=== PATIENT | male | born 1960 | race Caucasian/White ===

== ENCOUNTER 2017-01-30 20:41 | Emergency (ER) | payer SELFPAY ==
[~2017-01-30] VITALS: Ht 190.5 cm; Wt 78.9 kg
[~2017-01-30 20:41] MED LIST: IBUP-103 PO; vit B PO
[2017-01-30 20:55] VITALS: TEMP 36.5; O2SAT 97; Ht 190.5 cm; Wt 78.9 kg
--- NOTE | 2017-01-30 22:32 | DIAGNOSTIC IMAGING REPORT ---
HEAD CT NONCONTRAST CT DOSE: 614.27 mGy.cm HISTORY: Mental status change headache TECHNIQUE: Multiaxial CT images of the head were performed without the use of intravenous contrast. Comparison: None. Findings: The paranasal sinuses and mastoid air cells are clear. The calvarium and skull base are intact. The ventricles and sulci are within normal limits. There is no mass, hematoma, midline shift, or acute infarct. Impression: No acute intracranial abnormality. Electronically signed by: Max Banks M.D. 01/30/2017 10:30 PM Dictated Date/Time: 01/30/2017 10:29 PM
[2017-01-30 22:45] VITALS: BP 135/77; PULSE 86
--- NOTE | 2017-01-30 22:51 | EMERGENCY ROOM VISIT NOTE ---
History Report prepared by Oscaribkayli: Richy Wang Under the Supervision of: Dr. Chi Christensen D.O. First contact with patient: 21:31 Chief Complaint: HEAD INJURY (MINOR) Stated Complaint: FALL, HEADACHE History of Present Illness The patient is a 56 year old male who presents to the Emergency Room with complaints of constant head pain s/p fall occurring 4 days ago. He states that he fell and hit the back of his head. He denies any vomiting, or confusion. The patient states that he presented to the ED today because his friends convinced him. He notes that he felt really "shaky" the past several days until today. Source of History: patient Onset: 4 days ago Position: head (back of head) Timing: constant Associated Symptoms: No vomiting Note: he patient also complains of "shakiness" that resolved today. He denies any confusion Review of Systems See HPI for pertinent positives and negatives. A total of ten systems were reviewed and were otherwise negative. Past Medical & Surgical Medical Problems: (1) ALCOH DEP NEC/NOS-CONTIN (2) ALCOHOL WITHDRAWAL (3) BENIGN HYPERTENSION (4) epiglotitis (5) MIXED HYPERLIPIDEMIA (6) PURE HYPERGLYCERIDEMIA Family History No pertinent family history stated. Social History Smoking Status: Current Every Day Smoker Alcohol Use: heavy Drug Use: none Marital Status: single Housing Status: lives alone Occupation Status: employed Current/Historical Medications No Active Prescriptions or Reported Meds Allergies Coded Allergies: BEE STING (Verified Allergy, Unknown, swelling, 01/30/17) Physical Exam Vital Signs Date Time Temp Pulse Resp B/P (MAP) Pulse Ox O2 Delivery O2 Flow Rate FiO2 01/30/17 22:45 86 20 135/77 01/30/17 21:05 106 01/30/17 20:55 36.5 108 20 140/84 97 Room Air 01/30/17 20:52 20 Physical Exam GENERAL: Intoxicated, alcohol on breath, well appearing, no distress HENT: Normocephalic. Oropharynx unremarkable. Small hematoma to the posterior head. EYES: PERRL. Erythematous conjunctiva. Sclera non-icteric. NECK: Supple. No nuchal rigidity. FROM. RESPIRATORY: CTA CARDIAC: RRR GI/ABDOMEN: Soft, non distended. No tenderness to palpation. No rebound or guarding. No masses. RECTAL: Deferred. MUSCULOSKELETAL: No edema. No discoloration. Gross motor strength 5/5 bilaterally. NEURO: Altered sensorium. No sensory or motor deficits noted. Speech slurred. SKIN: No rash or jaundice noted. LYMPH: No adenopathy. Medical Decision & Procedures ER Provider Diagnostic Interpretation: CT: Radiology results as stated below per my review and radiologist interpretation HEAD CT NONCONTRAST Findings: The paranasal sinuses and mastoid air cells are clear. The calvarium and skull base are intact. The ventricles and sulci are within normal limits. There is no mass, hematoma, midline shift, or acute infarct. Impression: No acute intracranial abnormality. Electronically signed by: Max Banks M.D. ED Course 2132: The patient was evaluated in room B12B. A complete history and physical exam was performed. 2249: I reevaluated the patient. Discussed results and discharge instructions: he verbalized understanding and agreement. The patient is ready for discharge. Medical Decision Differential diagnoses include but are not limited to; subdural hemorrhage, ICH , hematoma, and alcohol abuse. Patient resting in no distress on repeat examination at 2300. Patient has a GCS of 15 is nonfocal neurologically. I discussed the evaluation with the patient at bedside. Patient's CAT scan was negative for intracranial hemorrhage. Impression Primary Impression: Closed head injury Scribe Attestation The scribe's documentation has been prepared under my direction and personally reviewed by me in its entirety. I confirm that the note above accurately reflects all work, treatment, procedures, and medical decision making performed by me. Departure Information Dispostion Home / Self-Care Prescriptions No Active Prescriptions or Reported Meds Referrals No Doctor, Assigned (PCP) Patient Instructions ED Head Injury Closed, My [facility]
== END 2017-01-30 23:09 | disposition home or self-care (01) ==
LOC: EDBD 20:41 → C.EDB 20:42
DX: S09.90XA Unspecified injury of head, initial encounter (principal); I10 Essential (primary) hypertension; E78.2 Mixed hyperlipidemia; F17.200 Nicotine dependence, unspecified, uncomplicated; W19.XXXA Unspecified fall, initial encounter

== ENCOUNTER 2019-08-27 13:10 | Inpatient (IN) ==
[2019-08-27 14:41] LABS: Basophils # (auto) 0.02 K/uL (0-0.2); Basophils % (auto) 0.1 %; Eosinophils # (auto) 0.02 K/uL (0-0.5); Eosinophils % (auto) 0.1 %; Hematocrit (blood only) 35.9 % (42-52); Hemoglobin 12.4 g/dL (14.0-18.0); Immature Granulocytes # (auto) 0.05 K/uL (0.00-0.02); Immature Granulocytes % (auto) 0.4 %; Lymphocytes # (auto) 1.73 K/uL (1.2-3.4); Lymphocytes % (auto) 12.9 %; Mean Corpuscular Hemoglobin 31.8 pg (25-34); Mean Corpuscular Hgb Conc 34.5 g/dL (32-36); Mean Corpuscular Volume 92.1 fL (80-100); Mean Platelet Volume 9.1 fL (7.4-10.4); Monocytes # (auto) 1.26 K/uL (0.11-0.59); Monocytes % (auto) 9.4 %; Neutrophils # (auto) 10.32 K/uL (1.4-6.5); Neutrophils % (auto) 77.1 %; Platelet Count 339 K/uL (130-400); RDW Coefficient of Variation 11.9 % (11.5-14.5); RDW Standard Deviation 40.2 fL (36.4-46.3)
--- NOTE | 2019-08-27 14:44 | XRay Report ---
XR chest 1V portable HISTORY: 59 years-old Male weakness acute weakness with confusion COMPARISON: Chest radiograph 09/29/2018 TECHNIQUE: Portable AP view of the chest FINDINGS: Cardiac silhouette is upper limits of normal in size. No overt pulmonary edema. Minimal right basilar densities suggest atelectasis. Airspace opacities of the left lung base. No pneumothorax or large pl eural effusion. Degenerative changes of the shoulders and spine. Healed remote bilateral rib fracture s. IMPRESSION: 1. Airspace opacities of the left lung base are suspicious for pneumonia. Follow-up imaging to docume nt resolution recommended. 2. Mild cardiomegaly. ACT 112: Negative or not required by law. The above report was generated using voice recognition software. It may contain grammatical, syntax o r spelling errors. Electronically signed by: Ortiz Duvall M.D. 08/27/2019 2:42 PM
[2019-08-27 15:01] LABS: Albumin Level 3.6 gm/dl (3.4-5.0); BUN Creatinine Ratio 9.2 (10-20); Blood Urea Nitrogen 7 mg/dl (7-18); Calcium 8.9 mg/dl (8.5-10.1); Carbon Dioxide 26 mmol/L (21-32); Chloride 100 mmol/L (98-107); Est GFR (African American) 112.9; Est GFR (Non-African American) 97.4; Glucose 106 mg/dl (70-99); Magnesium 2.2 mg/dl (1.8-2.4); Potassium 3.6 mmol/L (3.5-5.1); Sodium 131 mmol/L (136-145)
[2019-08-27 15:13] LABS: Alanine Aminotransferase 16 U/L (12-78); Alkaline Phosphatase 64 U/L (45-117); Aspartate Aminotransferase 12 U/L (15-37); Globulin 3.7 gm/dl (2.5-4.0); Thyroid Stimulating Hormone 0.631 uIu/ml (0.300-4.500); Total Protein 7.3 gm/dl (6.4-8.2)
--- NOTE | 2019-08-27 15:16 | CT Scan Report ---
CT head/brain wo con CLINICAL HISTORY: 59 years-old Male with AMS. Acutely altered mental status TECHNIQUE: Multiple axial CT images of the head were obtained without contrast. A dose lowering tech nique was utilized adhering to the principles of ALARA. CT DOSE: 1646.23 mGy.cm COMPARISON: Head CT 09/29/2018. FINDINGS: There is a hyperdense ring shaped ovoid mass within the left parietal lobe, 3.6 x 2.1 cm with central low attenuation suggestive of central necrosis. Large amount of surrounding vasogenic edema is noted resulting in partial effacement of the atria and posterior horn left lateral ventricle. This results in gyral expansion with mild sulcal effacement which involves the adjacent frontal, parietal, tempor al and occipital lobes. 3 mm rightward midline shift. No acute intracranial hemorrhage or acute judson torial ischemia. Age-related involutional changes with patchy white matter hypodensities suggestive o f chronic microvascular ischemic disease. Mild encephalomalacia of the inferior left frontal lobe red emonstrated. No hydrocephalus or herniation. No acute calvarial fracture. Mastoid air cells and middle ear cavities are clear. Soft tissues and or bits are within normal limits. Metallic density 3 mm focus involves the anterior frontal scalp, uncha nged compatible with foreign body. IMPRESSION: 1. 3.6 x 2.1 cm intra-axial mass of the left parietal lobe with probable central cavitation is noted with a large amount of surrounding vasogenic edema resulting in partial effacement of the atria and p osterior horn left lateral ventricle resulting in adjacent sulcal effacement with gyral expansion and 3 mm rightward midline shift. Primary glial neoplasm is the diagnosis of exclusion. Neurosurgical an d oncologic consultation is needed. 2. No acute intracranial hemorrhage, herniation or hydrocephalus. ACT 112: Negative or not required by law. The above report was generated using voice recognition software. It may contain grammatical, syntax o r spelling errors. Electronically signed by: Ortiz Duvall M.D. 08/27/2019 3:15 PM
[2019-08-27] MEDS ORDERED: DEXAMETHASONE **PF** INJ 10 MG/ML VIAL IV ONE (15:39)
[2019-08-27 16:16] LABS: Appearance Urine Clear (Clear); Bilirubin Urine Negative (Negative); Blood Urine Negative (Negative); Color Urine Yellow; Glucose Urine UA Negative (Negative); Ketones Urine Negative (Negative); Leukocyte Esterase Urine Negative (Negative); Nitrite Urine Negative (Negative); Protein Urine Negative (Negative); Specific Gravity Urine 1.006 (1.000-1.030); Urobilinogen Urine Negative (Negative)
[2019-08-27] MEDS ORDERED: cefTRIAXone SODIUM 1,000 MG/50 ML BAG IV STA (16:20)
[2019-08-27 18:55] LABS: Amphetamines+Metham, Urine Neg (Neg); Barbiturates, Urine Neg (Neg); Benzodiazepine, Urine Neg (Neg); Cocaine, Urine Neg (Neg); MDMA (Ecstacy), Urine Neg (Neg); Methadone, Urine Neg (Neg); Opiate, Urine Neg (Neg); Phencyclidine, Urine Neg (Neg)
[2019-08-27] MEDS ORDERED: IOVERSOL 100ml IV PRN (19:02)
--- NOTE | 2019-08-27 19:07 | History & Physical Report ---
Date of Service August 27, 2019 Assessment & Plan (1) Lung mass: 59y/o M presented to the emergency room with increased confusion and combativeness over the last several months Lung mass: - CT chest/abd/pelvis: demonstrated 3.6x3.0 cm spiculated mass in the lingula, with sub-centimeter nodules in LLL, 3mm lytic lesion of L 9th rib, 1.8cm lesion of R hepatic lobe - likely representing a primary lung malignancy with metastatic spread - attempted to reach Sister to update new findings of imaging studies (Alyssa Marsh [phone] or [phone]) Brain mass: - likely 2/2 metastatic lung cancer demonstrated on CT Chest - CT head: demonstrated 3.6 x 2..1 cm intra-axial lobe of the left parietal lobe with central cavitation Altered mental status: - ? if 2/2 lesion in left parietal lobe or due to metabolic cause - NA 131 on admission; UDS negative; alcohol level negative - started fluid restriction <1200mL Q24h - urine osmols pending, serum osmols pending - patient received Dexamethasone 10mg in ED; will continue with 4mg Q12h - Sodium chloride 1gm TID for replacement - BMPs Q8h - Neuro checks Q4h - ordered one-to-one sitter Diet: regular diet with fluid restriction to 1200mL daily Code: Full DVT ppx: Lovenox (2) Brain mass: (3) Altered mental status: History of Present Illness Chief Complaint: confusion and combativeness Primary Care Provider: NO PCP Supa Pate is a 59 y/o M with PMH of hypertension, alcoholism, uncertain d rug use, and uncertain extent of head trauma; presented to the emergency room following being increasingly confused and agitated with family this morning, family notes that when they arrived this morning he had defecated on the floor; per sister this has been progressing over the last year since he re-entered her families life. Had previously been living in a homeless fpc, or living on the streets for the better part of the last decade; when he was not living on the streets, per family, he had been living with his brother and likely using recreational drugs at that time, as his brother was known to family to "be mixed up in that stuff" and patient had to be checked into a detox facility shortly thereafter. They are also aware that he previously had a significant fall and was sent to [facility] (around 1999) for some brain bleed as a result of this trauma; he has had numerous falls since then but nothing that additionally required treatment Since March family has progressively noticed a decline in the function of the patient and this has continued to exponentially worsen over the last month with the patient becoming more increasingly confused, erratic (has been increasing his wandering around the community and has been found by family away from home), and they have noticed that he has been unable to sign his name. Family also noted that he has previously complained to them that his vision was worsening; patient is wearing glasses at this time, but they are unsure where he got them from or if they are prescription strength because they did not take him to get them. Allergies Allergy/AdvReac Type Severity Reaction Status Date / Time bee venom protein (honey bee) Allergy Unknown swelling Verified 08/27/19 14:17 Home Medications Home Medications Medication Instructions Recorded Confirmed Type No Known Home Medications 09/29/18 08/27/19 History Past Med/Surg History Medical History Distal radius fracture, left (Acute) Hypertension (Chronic) Family History Other Family history non-contributory Social History Feels Safe at Home: No Smoking Status: Current every day smoker Review of Systems Review of Systems: Unobtainable due to cognitive status Physical Exam Constitutional: well developed, well nourished and + behavioral limitations; no acute distress Eyes: PERRL, conjunctivae normal, anicteric sclerae ENMT: external ear and nose normal, oropharynx normal Respiratory: normal respiratory effort, lungs clear to auscultation Cardiovascular: Rate/Rhythm: regular rate and regular rhythm Heart Sounds: no gallop, no murmur and no cardiac rub Vessels: no JVD Gastrointestinal (Abdomen): normal bowel sounds, soft, nontender, no hepatosplenomegaly Neurologic: PERRL, EOMI, accommodation nl, no face palsy, no dysarthria Gait: + staggering gait testing limited based off patient's inability to follow commands Psychiatric: Orientation: alert, oriented to person, oriented to place and cooperative; + not oriented to time Apperance: + disheveled Eye Contact: + fair eye contact Motor Behavior: + abnormal motor movements and no psychomotor agitation Affect: + constricted affect Mood: + irritable mood Insight: not limited insight Judgement: not limited judgement patient frequently shifting in bed; moving blankets from side to side on bed and then on to floor followed by picking up from floor; frequently asking to sit down, even when he is already seated Results & Data Vital Signs (Past 12 Hours) Vital Signs Temp Pulse Pulse Resp BP Pulse Ox 08/27/19 18:00 76 20 165/88 H 08/27/19 14:42 37 C 08/27/19 14:36 97 08/27/19 14:34 69 18 149/78 H 08/27/19 14:33 97 08/27/19 13:14 103 H 18 94 Laboratory Results 08/27/19 08/27/19 08/27/19 Range/Units 17:34 15:55 15:55 WBC (4.8-10.8) K/uL RBC (4.7-6.1) M/uL Hgb (14.0-18.0) g/dL Hct (42-52) % MCV (80-100) fL MCH (25-34) pg MCHC (32-36) g/dL RDW Std Deviation (36.4-46.3) fL RDW Coeff of Skylar (11.5-14.5) % Plt Count (130-400) K/uL MPV (7.4-10.4) fL Immature Gran % (Auto) % Neut % (Auto) % Lymph % (Auto) % [place] % (Auto) % Eos % (Auto) % Baso % (Auto) % Immature Gran # (Auto) (0.00-0.02) K/uL Neut # (Auto) (1.4-6.5) K/uL Lymph # (Auto) (1.2-3.4) K/uL [place] # (Auto) (0.11-0.59) K/uL Eos # (Auto) (0-0.5) K/uL Baso # (Auto) (0-0.2) K/uL Sodium (136-145) mmol/L Potassium (3.5-5.1) mmol/L Chloride (98-107) mmol/L Carbon Dioxide (21-32) mmol/L Anion Gap (3-11) BUN (7-18) mg/dl Creatinine (0.6-1.4) mg/dl Est Cr Clr Drug Dosing Est GFR ( Amer) Est GFR (Non-Af Amer) BUN/Creatinine Ratio (10-20) Glucose (70-99) mg/dl Calcium (8.5-10.1) mg/dl Magnesium (1.8-2.4) mg/dl Total Bilirubin (0.2-1) mg/dl AST (15-37) U/L ALT (12-78) U/L Alkaline Phosphatase (45-117) U/L Total Protein (6.4-8.2) gm/dl Albumin (3.4-5.0) gm/dl Globulin (2.5-4.0) gm/dl Albumin/Globulin Ratio (0.9-2) TSH (0.300-4.500) uIu/ml Urine Color Yellow Urine Appearance Clear (Clear) Urine pH 6.0 (4.5-7.5) Ur Specific [place] 1.006 (1.000-1.030) Urine Protein Negative (Negative) Urine Glucose (UA) Negative (Negative) Urine Ketones Negative (Negative) Urine Blood Negative (Negative) Urine Nitrite Negative (Negative) Urine Bilirubin Negative (Negative) Urine Urobilinogen Negative (Negative) Ur Leukocyte Esterase Negative (Negative) Urine Opiates Screen Neg (Neg) Ur Methadone, Qual Neg (Neg) Urine Barbiturates Neg (Neg) Ur Phencyclidine (PCP) Neg (Neg) U Amphetamin/Meth Scrn Neg (Neg) MDMA (Ecstasy) Screen Neg (Neg) U Benzodiazepines Scrn Neg (Neg) Ur Cocaine Metabolite Neg (Neg) U Marijuana (THC) Screen Neg (Neg) Ethyl Alcohol mg/dL < 3.0 (0-3) mg/dl 08/27/19 08/27/19 Range/Units 14:30 14:30 WBC 13.40 H (4.8-10.8) K/uL RBC 3.90 L (4.7-6.1) M/uL Hgb 12.4 L (14.0-18.0) g/dL Hct 35.9 L (42-52) % MCV 92.1 (80-100) fL MCH 31.8 (25-34) pg MCHC 34.5 (32-36) g/dL RDW Std Deviation 40.2 (36.4-46.3) fL RDW Coeff of Skylar 11.9 (11.5-14.5) % Plt Count 339 (130-400) K/uL MPV 9.1 (7.4-10.4) fL Immature Gran % (Auto) 0.4 % Neut % (Auto) 77.1 % Lymph % (Auto) 12.9 % [place] % (Auto) 9.4 % Eos % (Auto) 0.1 % Baso % (Auto) 0.1 % Immature Gran # (Auto) 0.05 H (0.00-0.02) K/uL Neut # (Auto) 10.32 H (1.4-6.5) K/uL Lymph # (Auto) 1.73 (1.2-3.4) K/uL [place] # (Auto) 1.26 H (0.11-0.59) K/uL Eos # (Auto) 0.02 (0-0.5) K/uL Baso # (Auto) 0.02 (0-0.2) K/uL Sodium 131 L (136-145) mmol/L Potassium 3.6 (3.5-5.1) mmol/L Chloride 100 (98-107) mmol/L Carbon Dioxide 26 (21-32) mmol/L Anion Gap 5.0 (3-11) BUN 7 (7-18) mg/dl Creatinine 0.78 (0.6-1.4) mg/dl Est Cr Clr Drug Dosing Not Reportable Est GFR ( Amer) 112.9 Est GFR (Non-Af Amer) 97.4 BUN/Creatinine Ratio 9.2 L (10-20) Glucose 106 H (70-99) mg/dl Calcium 8.9 (8.5-10.1) mg/dl Magnesium 2.2 (1.8-2.4) mg/dl Total Bilirubin 1.0 (0.2-1) mg/dl AST 12 L (15-37) U/L ALT 16 (12-78) U/L Alkaline Phosphatase 64 (45-117) U/L Total Protein 7.3 (6.4-8.2) gm/dl Albumin 3.6 (3.4-5.0) gm/dl Globulin 3.7 (2.5-4.0) gm/dl Albumin/Globulin Ratio 1.0 (0.9-2) TSH 0.631 (0.300-4.500) uIu/ml Urine Color Urine Appearance (Clear) Urine pH (4.5-7.5) Ur Specific [place] (1.000-1.030) Urine Protein (Negative) Urine Glucose (UA) (Negative) Urine Ketones (Negative) Urine Blood (Negative) Urine Nitrite (Negative) Urine Bilirubin (Negative) Urine Urobilinogen (Negative) Ur Leukocyte Esterase (Negative) Urine Opiates Screen (Neg) Ur Methadone, Qual (Neg) Urine Barbiturates (Neg) Ur Phencyclidine (PCP) (Neg) U Amphetamin/Meth Scrn (Neg) MDMA (Ecstasy) Screen (Neg) U Benzodiazepines Scrn (Neg) Ur Cocaine Metabolite (Neg) U Marijuana (THC) Screen (Neg) Ethyl Alcohol mg/dL (0-3) mg/dl Medications Administered Current Inpatient Medications Acetaminophen (Tylenol) 650 mg PO Q4H PRN PRN Reason: pain/fever Stop: 09/26/19 20:25 Al Hydrox/Mg Hydrox/Simethicone (Maalox) 30 ml PO Q6H PRN PRN Reason: Dyspepsia Stop: 09/26/19 20:25 Enoxaparin Sodium (Lovenox) 40 mg SQ Q24H RAHUL Stop: 09/26/19 20:59 Haloperidol Lactate (Haldol) 2 mg IV UD PRN PRN Reason: Agitation Stop: 09/26/19 20:49 Dexamethasone Sodium Phosphate (4 mg/ Syringe) 1 mls @ 1 mls/min IV Q12H RAHUL Stop: 09/27/19 08:59 Ioversol (Optiray 320 100ml) 93 ml IV ONCE PRN PRN Reason: Interaction Checking Stop: 08/31/19 19:01 Last Admin: 08/27/19 19:03 Dose: 93 ml Documented by: Magnesium Hydroxide (Milk Of Magnesia) 30 ml PO Q6H PRN PRN Reason: Constipation Stop: 09/26/19 20:25 Ondansetron HCl (Zofran) 4 mg IV Q6H PRN PRN Reason: Nausea Stop: 09/26/19 20:25 Polyethylene Glycol (Miralax Powder Packet) 17 gm PO DAILY PRN PRN Reason: Constipation Stop: 09/26/19 20:25 Supervising Physician Co-Signing Physician Notes Patient seen and examined, chart reviewed, case discussed with Dr. David and agree with assessment and plan as documented above. Briefly, patient is a 59-year-old male with history of hypertension, alcoholism, remote history of IV drug use and homelessness presenting with his sister and [id number] after behavioral changes noted. ER work-up revealed a large left parietal mass concerning for metastatic disease versus primary malignancy. On postop exam he is afebrile, hemodynamically stable, able to answer questions and follow commands however he is inattentive, trying to walk out of the room and acting bizarrely at times. HEENTnormocephalic/atraumatic, pupils equal round and reactive to light, extraocular muscles intact, moist mucous membranes, neck supple Heart+ S1, S2, regular, no murmur/rub/gallops Lungsequal air entry bilaterally, no rales/rhonchi/wheezes, poor effort Abdomen+ bowel sounds, soft, nontender/nondistended Extremitieswarm, well-perfused Neuropatient awake alert and oriented x3, inattentive Labs and images reviewed. On CT chest a 3.6 x 3 cm spiculated mass discovered in the lingula 6 highly suspicious for primary bronchogenic malignancy. Also noted to have nodules in the left lower lobe concerning for metastatic disease, a 3 mm lytic lesion in the left lateral ninth rib as well as a 1.8 cm hypodense lesion in the right hepatic lobe. Assessment/[id number] male presenting with diffusely metastatic disease, most likely lung primary. 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 Admit to medical floor Fluid restriction and salt tablets 1 g p.o. 3 times daily for sodium -Continue Dexamethasone for vasogenic edema -Neuro checks Check urine and serum osmolality. -Patient has been referred to [facility] and is to transfer tomorrow Remainder of plan as above Resident Activity Tracking Resident Involvement: Resident Care Provided Care Provided: Adult [facility] (1) Altered mental status Altered mental status type: delirium Qualified Code(s): R41.0 - Di sorientation, unspecified
--- NOTE | 2019-08-27 19:27 | CT Scan Report ---
CHEST CT WITH CONTRAST, ABDOMEN AND PELVIS CT WITH CONTRAST CT DOSE: 720.43 mGy.cm HISTORY: brain mass, mets TECHNIQUE: Multiaxial CT images of the chest, abdomen, pelvis were performed following the intravenou s administration of contrast. A dose lowering technique was utilized adhering to the principles of A JACKELYN. COMPARISON: None. FINDINGS: Chest CT: A 3 mm nodule within the superior segment of the left lower lobe on image 68. Mild emphysem a. Tiny nodular densities along the left major fissure. A 5 mm nodule within the left lower lobe on i mage 267. There are 2 additional nodules within the basal left lower lobe on image 278 measuring 5 an d 7 mm. Punctate calcified granuloma within the right middle lobe. There is a spiculated mass within the lingula with distal consolidation suggestive of postobstructive pneumonitis. The spiculated mass measures 3.6 x 3.0 cm. Old, healed bilateral rib fractures. No suspicious lytic are blastic osseous l esions. The heart is normal in size. Normal caliber thoracic aorta with no evidence for dissection. T he main pulmonary arteries are patent. Calcified right paratracheal lymph node. Subcentimeter mediast inal hilar lymph nodes do not meet CT criteria for pathologic involvement. Dominant distal right para esophageal lymph node measures 8 mm. Abdomen/pelvis CT: No pneumoperitoneum. No pneumatosis. Possible 3 mm lytic lesion within the left la teral ninth rib. This is best seen on image 132. An indeterminate 1.8 cm hypodense lesion within the right hepatic lobe. This does not appear to represent a cyst. The spleen and left adrenal gland are u nremarkable. A 1.3 cm right adrenal gland nodule measures less than 10 Hounsfield units and therefore favors a benign adenoma. The kidneys, gallbladder, and pancreas are unremarkable. The bladder is dec ompressed and not well evaluated. Trace pelvic free fluid. Colonic diverticulosis. No evidence for di verticulitis. Normal appendix. No retroperitoneal lymphadenopathy. Calcified plaque within the normal caliber abdominal aorta. No bowel wall thickening or obstruction. IMPRESSION: 1. A 3.6 x 3.0 cm spiculated mass within the lingula. This is highly suspicious for a primary broncho genic malignancy. 2. A few subcentimeter nodules within the left lower lobe as described above which are concerning for metastatic disease. 3. Possible 3 mm lytic lesion within the left lateral ninth rib. This will be better assessed on foll ow-up PET/CT. 4. An indeterminate 1.8 cm hypodense lesion within the right right hepatic lobe. This could represent a metastatic focus. 5. Additional findings as described above. ACT 112: Negative or not required by law. Electronically signed by: Haseeb Flowers M.D. 08/27/2019 7:25 PM
--- NOTE | 2019-08-27 19:57 | Emergency Department Note ---
Entered by Yen Clancy acting as a scribe for History of Present Illness General Chief complaint: Confusion Stated complaint: CONFUSION Source: family (sister) History of Present Illness Provider complaint: confusion Onset (ago): day(s) 3 Location: head Severity: similar to prior episodes Quality: + other (confusion) Associated symptoms: + denies other symptoms The patient, who is a 59 year old male with a medical history of hypertension and left distal radius fracture, presents to the Emergency Room with complaints of an episode of confusion that started this morning. The patient's sister states that this patient has a history of confusion. The patient's sister reports that today the patient went to the bathroom on the floor and was unable to dress himself for his appointment today. The patient's daughter recalls that on four days ago the patient thought his appointment was on that day and prepared himself for that appointment. 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 The patient's sister reports that the patient has a history of head injury but is unsure of the significance. The patient's sister relays that the patient was homeless for one year but has recently settled into an apartment. The patient's sister denies a history of mental issues. The patient's sister states that the patient has been sober for months. The patient denies any pain and is unsure why he is in the hospital. Home Medications Home Medications Medication Instructions Recorded Confirmed Type No Known Home Medications 09/29/18 08/27/19 History dexamethasone sodium phosphate 4 mg IV Q12H #30 ml 08/28/19 Rx folic acid 1 mg PO DAILY #30 tab 08/28/19 Rx levetiracetam [Keppra] 500 mg PO BID #60 tab 08/28/19 Rx multivitamin 1 cap PO DAILY #30 cap 08/28/19 Rx potassium chloride [Klor-Con M20] 20 meq PO TID #6 tab 08/28/19 Rx sodium chloride 1 g PO TID #6 tab 08/28/19 Rx thiamine HCl (vitamin B1) 200 mg PO BID #120 tab 08/28/19 Rx Allergies Allergy/AdvReac Type Severity Reaction Status Date / Time bee venom protein (honey bee) Allergy Unknown swelling Verified 08/27/19 14:17 Past Med/Surg History Medical History Distal radius fracture, left (Acute) Hypertension (Chronic) Family History Other Family history non-contributory Social History (Updated 08/28/19 @ 08:51 by Jose L Farley III, MD) Preferred Language: Faroese Communication Ability: Effective Internal Control Analyst Required: No Beliefs That Will Affect Care: None Current Living Situation: Alone current occupational status: unemployed other: Former construction carpenters helper Feels Safe at Home: Declines to Answer Smoking Status: Current every day smoker packs per day: 0.5 ; Hx Alcohol Use: Yes Alcohol type: beer and hard liquor Alcohol Intake Frequency Comment: Was a heavy drinker in the past. Not drinking much currently. Hx Substance Use: No Review of Systems See HPI for pertinent positives & negatives. and A total of 10 systems reviewed and were otherwise negative Physical Exam Vital Signs Vital Signs - 24 hr 08/27/19 13:14 08/27/19 14:33 08/27/19 14:34 Temperature Temperature Source Pulse Rate 103 H Pulse Rate [Apical] 69 Pulse Rhythm [Apical] Regular Pulse Strength [Apical] Normal Respiratory Rate 18 18 Respiratory Effort / Characteristics Non-Labored Non-Labored Spontaneous Respiratory Depth Normal Normal Blood Pressure [Left Arm] 149/78 H Blood Pressure Mean [Left Arm] 101 Blood Pressure Position [Left Arm] Lying Pulse Oximetry 94 97 Oxygen Delivery Method Room Air Room Air Room Air Sepsis Recent Fever Within 48 Hours No Sepsis Action Taken by Nursing No Action Required 08/27/19 14:36 08/27/19 14:42 08/27/19 18:00 Temperature 37 C Temperature Source Oral Pulse Rate Pulse Rate [Apical] 76 Pulse Rhythm [Apical] Regular Pulse Strength [Apical] Normal Respiratory Rate 20 Respiratory Effort / Characteristics Non-Labored Spontaneous Respiratory Depth Normal Blood Pressure [Left Arm] 165/88 H Blood Pressure Mean [Left Arm] 113 Blood Pressure Position [Left Arm] Sitting Pulse Oximetry 97 Oxygen Delivery Method Room Air Sepsis Recent Fever Within 48 Hours Sepsis Action Taken by Nursing 08/27/19 19:12 Temperature Temperature Source Pulse Rate Pulse Rate [Apical] 77 Pulse Rhythm [Apical] Pulse Strength [Apical] Respiratory Rate 20 Respiratory Effort / Characteristics Respiratory Depth Blood Pressure [Left Arm] 136/72 Blood Pressure Mean [Left Arm] 93 Blood Pressure Position [Left Arm] Pulse Oximetry 100 Oxygen Delivery Method Room Air Sepsis Recent Fever Within 48 Hours Sepsis Action Taken by Nursing Vital signs reviewed. General: Well-appearing, despondent, male, in no significant distress. HEENT: No scleral icterus, PERRLA, neck supple. Atraumatic. Cardiovascular: Regular rate and rhythm, no extra sounds. Pulmonary: Clear to auscultation bilaterally, normal work of breathing. Abdomen: Soft, nontender, nondistended, positive bowel sounds. Musculoskeletal: Atraumatic, no peripheral edema. Neurologic: Patient awake alert and unaware of year, aware of location, full strength in all 4 extremities. Cranial nerves 2 through 12 grossly intact. Seems to have a delay in response. Speech is clear. Ambulates without difficulty. Skin: Warm, dry, no rash Course Course 1405: Past medical records reviewed. The patient was evaluated in room C3. A complete history and physical exam was performed. 1643: I reassessed the patient and discussed his results. I talked in length with the patient and his sister about the details of his transfer. 1651: I reviewed the patient's case with Dr. Echeverria, Neurosurgeon, [facility]. He was informed on the patient's condition and is willing to accept the patient for transfer. 1655: I reviewed the [facility] He informed me that there was no availability in their facility and suggests further evaluation from our hospitalist. 1708: I reviewed the patient's case with Dr. Annamarie Rowell, [facility] Hospitalist. She will evaluate the patient for further management. Consultations Consultation #1: I reviewed the patient's case with Dr. Echeverria, Janeen, [facility]. He was informed on the patient's condition and is willing to accept the patient for transfer Time: 16:51 Consultation #2: I reviewed the patient's [facility] He informed me that there was no availability in their facility and suggests further evaluation from our hospitalist. Time: 16:55 Consultation #3: I reviewed the patient's case with Dr. Annamarie Rowell, [facility] Hospitalist. She will evaluate the patient for further management. Time: 17:08 Administered Medications Discontinued Medications Dexamethasone Sodium Phosphate (Decadron Pf) 10 mg IV NOW ONE Stop: 08/27/19 15:40 Last Admin: 08/27/19 16:05 Dose: 10 mg Documented by: [id number] Enoxaparin Sodium (Lovenox) 40 mg SQ Q24H RAHUL Stop: 09/26/19 20:59 Last Admin: 08/27/19 22:03 Dose: Not Given Documented by: [id number] Folic Acid (Folvite) 1 mg PO QAM RAHUL Stop: 09/27/19 10:29 Last Admin: 08/28/19 12:29 Dose: 1 mg Documented by: [id number] Ceftriaxone Sodium (Rocephin) 1,000 mg in 50 mls @ 100 mls/hr IV NOW STA Stop: 08/27/19 16:49 Last Infusion: 08/27/19 18:16 Dose: 0 mls/hr Documented by: [id number] Admin: 08/27/19 17:45 Dose: 100 mls/hr Documented by: [id number] Dexamethasone Sodium Phosphate (4 mg/ Syringe) 1 mls @ 1 mls/min IV Q12H RAHUL Stop: 09/27/19 08:59 Last Admin: 08/28/19 07:44 Dose: 1 mls/min Documented by: [id number] Levetiracetam 1,000 mg/ (Dextrose) 110 mls @ 440 mls/hr IV NOW STA Stop: 08/28/19 01:20 Last Infusion: 08/28/19 02:42 Dose: 0 mls/hr Documented by: [id number] Admin: 08/28/19 02:25 Dose: 440 mls/hr Documented by: [id number] Mannitol (Mannitol 20%) 250 mls @ 500 mls/hr IV NOW ONE; Protocol Stop: 08/28/19 01:44 Last Infusion: 08/28/19 02:25 Dose: 0 mls/hr Documented by: [id number] Admin: 08/28/19 01:23 Dose: 500 mls/hr Documented by: [id number] Thiamine HCl 200 mg/ Sodium (Chloride) 52 mls @ 208 mls/hr IV BID RAHUL Stop: 09/27/19 08:59 Last Infusion: 08/28/19 09:59 Dose: 0 mls/hr Documented by: [id number] Admin: 08/28/19 09:44 Dose: 208 mls/hr Documented by: [id number] Ioversol (Optiray 320 100ml) 93 ml IV ONCE PRN PRN Reason: Interaction Checking Stop: 08/31/19 19:01 Last Admin: 08/27/19 19:03 Dose: 93 ml Documented by: [id number] Levetiracetam (Keppra) 500 mg PO BID RAHUL Stop: 09/27/19 08:59 Last Admin: 08/28/19 09:45 Dose: 500 mg Documented by: [id number] Multivitamins/Minerals (Multivitamin W/ Minerals Tab) 1 tab PO QAM RAHUL Stop: 09/27/19 10:29 Last Admin: 08/28/19 12:29 Dose: 1 tab Documented by: [id number] Potassium Chloride (Klor-Con M20) 20 meq PO TID RAHUL Stop: 09/27/19 08:59 Last Admin: 08/28/19 09:44 Dose: 20 meq Documented by: [id number] Sodium Chloride (Sodium Chloride) 1 gm PO TID RAHUL Stop: 09/27/19 08:59 Last Admin: 08/28/19 07:44 Dose: 1 gm Documented by: [id number] Sodium Chloride (Sodium Chloride Flush) 10 ml IV ONE ONE Stop: 08/28/19 01:16 Last Admin: 08/28/19 02:25 Dose: 10 ml Documented by: [id number] Medical Decision Making Differential Diagnosis Differential diagnosis includes: metabolic, infection, hypoglycemia, electrolyte abnormalities, cardiac sources, intracerebral event, toxicologic, neurologic, as well as others were entertained. Medical Records Attestation: I reviewed the patient's medical records. Home Medications Current Medication List: was personally reviewed by me Laboratory Data Attestation: I reviewed the patient's lab results. Result diagrams: 08/27/19 14:30 08/28/19 06:43 Lab Results 08/27/19 08/27/19 08/27/19 Range/Units 14:30 14:30 15:55 WBC 13.40 H (4.8-10.8) K/uL RBC 3.90 L (4.7-6.1) M/uL Hgb 12.4 L (14.0-18.0) g/dL Hct 35.9 L (42-52) % MCV 92.1 (80-100) fL MCH 31.8 (25-34) pg MCHC 34.5 (32-36) g/dL RDW Std Deviation 40.2 (36.4-46.3) fL RDW Coeff of Skylar 11.9 (11.5-14.5) % Plt Count 339 (130-400) K/uL MPV 9.1 (7.4-10.4) fL Immature Gran % (Auto) 0.4 % Neut % (Auto) 77.1 % Lymph % (Auto) 12.9 % [place] % (Auto) 9.4 % Eos % (Auto) 0.1 % Baso % (Auto) 0.1 % Immature Gran # (Auto) 0.05 H (0.00-0.02) K/uL Neut # (Auto) 10.32 H (1.4-6.5) K/uL Lymph # (Auto) 1.73 (1.2-3.4) K/uL [place] # (Auto) 1.26 H (0.11-0.59) K/uL Eos # (Auto) 0.02 (0-0.5) K/uL Baso # (Auto) 0.02 (0-0.2) K/uL Sodium 131 L (136-145) mmol/L Potassium 3.6 (3.5-5.1) mmol/L Chloride 100 (98-107) mmol/L Carbon Dioxide 26 (21-32) mmol/L Anion Gap 5.0 (3-11) BUN 7 (7-18) mg/dl Creatinine 0.78 (0.6-1.4) mg/dl Est Cr Clr Drug Dosing Not Reportable Est GFR ( Amer) 112.9 Est GFR (Non-Af Amer) 97.4 BUN/Creatinine Ratio 9.2 L (10-20) Glucose 106 H (70-99) mg/dl Calcium 8.9 (8.5-10.1) mg/dl Magnesium 2.2 (1.8-2.4) mg/dl Total Bilirubin 1.0 (0.2-1) mg/dl AST 12 L (15-37) U/L ALT 16 (12-78) U/L Alkaline Phosphatase 64 (45-117) U/L Total Protein 7.3 (6.4-8.2) gm/dl Albumin 3.6 (3.4-5.0) gm/dl Globulin 3.7 (2.5-4.0) gm/dl Albumin/Globulin Ratio 1.0 (0.9-2) TSH 0.631 (0.300-4.500) uIu/ml Urine Color Yellow Urine Appearance Clear (Clear) Urine pH 6.0 (4.5-7.5) Ur Specific [place] 1.006 (1.000-1.030) Urine Protein Negative (Negative) Urine Glucose (UA) Negative (Negative) Urine Ketones Negative (Negative) Urine Blood Negative (Negative) Urine Nitrite Negative (Negative) Urine Bilirubin Negative (Negative) Urine Urobilinogen Negative (Negative) Ur Leukocyte Esterase Negative (Negative) Urine Opiates Screen (Neg) Ur Methadone, Qual (Neg) Urine Barbiturates (Neg) Ur Phencyclidine (PCP) (Neg) U Amphetamin/Meth Scrn (Neg) MDMA (Ecstasy) Screen (Neg) U Benzodiazepines Scrn (Neg) Ur Cocaine Metabolite (Neg) U Marijuana (THC) Screen (Neg) Ethyl Alcohol mg/dL (0-3) mg/dl 08/27/19 08/27/19 Range/Units 15:55 17:34 WBC (4.8-10.8) K/uL RBC (4.7-6.1) M/uL Hgb (14.0-18.0) g/dL Hct (42-52) % MCV (80-100) fL MCH (25-34) pg MCHC (32-36) g/dL RDW Std Deviation (36.4-46.3) fL RDW Coeff of Skylar (11.5-14.5) % Plt Count (130-400) K/uL MPV (7.4-10.4) fL Immature Gran % (Auto) % Neut % (Auto) % Lymph % (Auto) % [place] % (Auto) % Eos % (Auto) % Baso % (Auto) % Immature Gran # (Auto) (0.00-0.02) K/uL Neut # (Auto) (1.4-6.5) K/uL Lymph # (Auto) (1.2-3.4) K/uL [place] # (Auto) (0.11-0.59) K/uL Eos # (Auto) (0-0.5) K/uL Baso # (Auto) (0-0.2) K/uL Sodium (136-145) mmol/L Potassium (3.5-5.1) mmol/L Chloride (98-107) mmol/L Carbon Dioxide (21-32) mmol/L Anion Gap (3-11) BUN (7-18) mg/dl Creatinine (0.6-1.4) mg/dl Est Cr Clr Drug Dosing Est GFR ( Amer) Est GFR (Non-Af Amer) BUN/Creatinine Ratio (10-20) Glucose (70-99) mg/dl Calcium (8.5-10.1) mg/dl Magnesium (1.8-2.4) mg/dl Total Bilirubin (0.2-1) mg/dl AST (15-37) U/L ALT (12-78) U/L Alkaline Phosphatase (45-117) U/L Total Protein (6.4-8.2) gm/dl Albumin (3.4-5.0) gm/dl Globulin (2.5-4.0) gm/dl Albumin/Globulin Ratio (0.9-2) TSH (0.300-4.500) uIu/ml Urine Color Urine Appearance (Clear) Urine pH (4.5-7.5) Ur Specific [place] (1.000-1.030) Urine Protein (Negative) Urine Glucose (UA) (Negative) Urine Ketones (Negative) Urine Blood (Negative) Urine Nitrite (Negative) Urine Bilirubin (Negative) Urine Urobilinogen (Negative) Ur Leukocyte Esterase (Negative) Urine Opiates Screen Neg (Neg) Ur Methadone, Qual Neg (Neg) Urine Barbiturates Neg (Neg) Ur Phencyclidine (PCP) Neg (Neg) U Amphetamin/Meth Scrn Neg (Neg) MDMA (Ecstasy) Screen Neg (Neg) U Benzodiazepines Scrn Neg (Neg) Ur Cocaine Metabolite Neg (Neg) U Marijuana (THC) Screen Neg (Neg) Ethyl Alcohol mg/dL < 3.0 (0-3) mg/dl Imaging Data Radiologist's Impression: Radiology results as stated below per my review and the radiologist's interpretation: CT head/brain wo con CLINICAL HISTORY: 59 years-old Male with AMS. Acutely altered mental status TECHNIQUE: Multiple axial CT images of the head were obtained without contrast. A dose lowering technique was utilized adhering to the principles of ALARA. CT DOSE: 1646.23 mGy.cm COMPARISON: Head CT 09/29/2018. FINDINGS: There is a hyperdense ring shaped ovoid mass within the left parietal lobe, 3.6 x 2.1 cm with central low attenuation suggestive of central necrosis. Large amount of surrounding vasogenic edema is noted resulting in partial effacement of the atria and posterior horn left lateral ventricle. This results in gyral expansion with mild sulcal effacement which involves the adjacent frontal, parietal, temporal and occipital lobes. 3 mm rightward midline shift. No acute intracranial hemorrhage or acute territorial ischemia. Age-related involutional changes with patchy white matter hypodensities suggestive of chronic microvascular ischemic disease. Mild encephalomalacia of the inferior left frontal lobe redemonstrated. No hydrocephalus or herniation. No acute calvarial fracture. Mastoid air cells and middle ear cavities are clear. Soft tissues and orbits are within normal limits. Metallic density 3 mm focus involves the anterior frontal scalp, unchanged compatible with foreign body. IMPRESSION: 1. 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 Primary glial neoplasm is the diagnosis of exclusion. Neurosurgical and oncologic consultation is needed. 2. No acute intracranial hemorrhage, herniation or hydrocephalus. ACT 112: Negative or not required by law. The above report was generated using voice recognition software. It may contain grammatical, syntax or spelling errors. Electronically signed by: Ortiz Duvall M.D. 08/27/2019 3:15 PM XR chest 1V portable HISTORY: 59 years-old Male weakness acute weakness with confusion COMPARISON: Chest radiograph 09/29/2018 TECHNIQUE: Portable AP view of the chest FINDINGS: Cardiac silhouette is upper limits of normal in size. No overt pulmonary edema. Minimal right basilar densities suggest atelectasis. Airspace opacities of the left lung base. No pneumothorax or large pleural effusion. Degenerative changes of the shoulders and spine. Healed remote bilateral rib fractures. IMPRESSION: 1. Airspace opacities of the left lung base are suspicious for pneumonia. Follow-up imaging to document resolution recommended. 2. Mild cardiomegaly. ACT 112: Negative or not required by law. The above report was generated using voice recognition software. It may contain grammatical, syntax or spelling errors. Electronically signed by: Ortiz Duvall M.D. 08/27/2019 2:42 PM ECG Data Attestation: I personally reviewed and interpreted this ECG as follows: Indication: + altered mental status Rate (beats per minute): 75 Rhythm: + normal sinus ECG Findings: + Q waves (Lateral leads) and + Other (Left atrial enlargement; No ectopy; No acute ST change; ) Blood Pressure Blood Pressure Findings: Elevated blood pressure Blood Pressure Disposition: further management by hospitalist MDM Narrative This pt was evaluated and appeared to be in no distress. IV access was obtained and lab work was drawn. Pt certainly has a complex PMH/PSH with long h/o smoking. CT head reveals a L parietal lobe mass with vasogenic edema. IV decadron 10 mg was ordered. CXR reveals L basilar infiltrate. Blood cx obtained and pt was medicated with IV ceftriaxone. Case was discussed with [facility] [place] for further management. Dr Echeverria of neurosurgery and Dr. Alvarado of hospitalist service agreed to transfer, however they are on at least a 16 hour divert d/t a full facility. Family preferred not to go to [facility] who, incidentally, is on a similar delay. Dr. Echeverria has made some recommendations including CT CAP, which was ordered. I did speak with Dr. Rowell of our hospitalist service, who will evaluate the pt for further management. Impression & Plan Brain mass, Altered mental status Discharge Plan Visit Data *Final* Discharge Date/Time: 08/27/19 19:57 Chief Complaint: Confusion Stated Complaint: CONFUSION ED Provider: Lucie Mclaughlin Discharge Problem: Brain mass, Altered mental status Patient Disposition: Admitted As Inpatient Discharge Instructions Interventions: ED Discharge Assessment Last Done: 08/27/19 19:57 Discharge Problem: Altered mental status Qualifiers: Altered mental status type: delirium Qualified Code(s): R41.0 - Disorientation, unspecified The scribe's documentation has been prepared under my direction and personally reviewed by me in its entirety. I confirm that the note above accurately reflects all work, treatment, procedures, and medical decision making performed by me.
[2019-08-27] MEDS ORDERED: MAGNESIUM HYDROXIDE SUSP 30 ML UDC PO PRN (20:26)
[2019-08-27] MEDS ORDERED: ALUMINUM/MAGNESIUM SUSP 30 ML UDC PO PRN (20:26)
[2019-08-27] MEDS ORDERED: ACETAMINOPHEN 325 MG TAB PO PRN (20:26)
[2019-08-27] MEDS ORDERED: POLYETHYLENE (MIRALAX) 17 GM PACK PO PRN (20:26)
[2019-08-27] MEDS ORDERED: ONDANSETRON INJ 2 MG/ML 2 ML VIAL IV PRN (20:26)
[2019-08-27] MEDS ORDERED: HALOPERIDOL LACTATE 5 MG/ML 1 ML VIAL IM PRN (20:50)
[2019-08-27] MEDS ORDERED: ENOXAPARIN INJ 40 MG/0.4 ML SYR SQ SCH (21:00)
--- NOTE | 2019-08-27 21:25 | Billing Data ---
Date of Service August 27, 2019 Coding Level of Care Code 27199 Initial Inpt Care Lvl 3
[2019-08-27 22:57] LABS: BUN Creatinine Ratio 10.8 (10-20); Calcium 9.1 mg/dl (8.5-10.1); Creatinine Clr Calc Pharmacy 106.2 ml/min; Est GFR (African American) 116.7; Est GFR (Non-African American) 100.7; Potassium 3.9 mmol/L (3.5-5.1)
[2019-08-28] MEDS ORDERED: LORazepam 2 MG/4 ML VIAL IV PRN (00:55)
[2019-08-28] MEDS ORDERED: MANNITOL 20% 100GM/500 ML BAG IV STA (01:00)
[2019-08-28] MEDS ORDERED: MANNITOL 20% 250 ML IV ONE (01:15)
[2019-08-28] MEDS ORDERED: SODIUM CHLORIDE 0.9% 10ML FLUSH IV ONE (01:15)
--- NOTE | 2019-08-28 01:19 | Communication Note ---
Date of Service: August 28, 2019 Edmundo rudolph was called at approximately 12:38 AM. Per report the patient had grabbed the side of his bed and then began shaking after which he became u nresponsive and flaccid. When I arrived to the room, the patient was more responsive, hypertensive and tachycardic. The patient was assessed and slowly improved while we were in the room. Although he did appear confused, and was unable to meaningfully respond to staff. His mental status continued to improve. Dr. Montenegro was present as well. We believe that this episode likely represented a seizure with postictal confusion. -Patient given mannitol 50 g -PRN Ativan 2 mg may repeat the dose every 3 to 5 minutes for seizure activity -Loaded with 1 g of Keppra -Consult neuro -EEG in the a.m. Resident Activity Tracking Resident Involvement: Resident Care Provided Care Provided: Adult Hospital Medicine
--- NOTE | 2019-08-28 07:47 | Electrocardiogram Report ---
Test Reason : Blood Pressure : / mmHG Vent. Rate : 075 BPM Atrial Rate : 075 BPM P-R Int : 140 ms QRS Dur : 086 ms QT Int : 400 ms P-R-T Axes : 059 043 047 degrees QTc Int : 446 ms Normal sinus rhythm Possible Left atrial enlargement Left ventricular hypertrophy Abnormal ECG When compared with ECG of 29-SEP-2018 21:13, No significant change was found Confirmed by Joey Ackerman ([id number]) on 08/28/2019 7:47:27 AM Referred By: ED Confirmed By:Torey Ackerman
[2019-08-28 07:54] LABS: BUN Creatinine Ratio 9.2 (10-20); Calcium 9.1 mg/dl (8.5-10.1); Creatinine Clr Calc Pharmacy 80.5 ml/min; Est GFR (African American) 99.7; Est GFR (Non-African American) 86.1; Potassium 3.2 mmol/L (3.5-5.1)
[2019-08-28] MEDS ORDERED: POTASSIUM CHLORIDE 20 MEQ TABCR PO SCH (09:00)
[2019-08-28] MEDS ORDERED: levETIRAcetam 500 MG TAB PO SCH (09:00)
[2019-08-28] MEDS ORDERED: DEXAMETHASONE SOD PHOSPHATE 4 MG in SYRINGE 0 ML IV SCH (09:00)
[2019-08-28] MEDS ORDERED: THIAMINE HCL 200 MG in SODIUM CHLORIDE 0.9% 50 ML IV SCH (09:00)
[2019-08-28] MEDS ORDERED: SODIUM CHLORIDE 1 GM TABLET PO SCH (09:00)
--- NOTE | 2019-08-28 09:06 | Neurology Consultation ---
Date of Consultation August 28, 2019 Assessment & Plan (1) Brain mass: (2) Witnessed seizure: (3) Lung mass: Patient has cognitive/memory problems likely due to his left parietal mass with edema and mass effect. I suspect this is of min metastasis from a lung primary but other etiologies are possible. Clinically, he has some mild right arm greater than leg weakness (not face) and some slightly brisker reflexes on the right compared to the left. He has a right upgoing toe. A receptive aphasia is likely present. I also wonder clinically if he has some right homonymous hemianopsia. His balance is poor. All of this would be from his left parietal mass and associated edema. Patient had a witnessed seizure earlier this a.m.. This was likely from his left parietal mass/edema as well. He was given 1 gram of Keppra and has had no seizures since. CT scans reveal probable other best test the season the liver and rib. Recommendations: 1. MRI of the brain with and without contrast. 2. Continue levetiracetam 500 milligrams twice daily for now. I see no reason for an EEG. 3. Continue Decadron 4 milligrams twice daily. 4. Physical, occupational, and speech therapy consult would be reasonable if he stays in this institution. 5. Consider transfer to [facility] where they have neurosurgeons and he should get oncology consultation as well. Overall, I spent a total of 70 minutes with this case including review of records, review of CT films, direct evaluation patient at bedside, and discussion of the case with the patient at bedside, and Dr. Hsu including differential diagnosis and treatment options. History of Present Illness Reason for Consultation: 59-year-old, who I was asked to see at the request of Dr. Rowell, for neurologic consultation regarding intercerebral mass and seizure. Requesting Physician: Dr. Rowell Attending Physician: Pebbles Rowell, DO History of Present Illness Patient has a history of hypertension and alcoholism. He has had admissions to the emergency room with high alcohol levels as recently as September 2018. He has been a smoker for over 20 years. There is some history that the patient has had some confusion and trouble concentrating remembering. He was homeless for about a year prior to this past year and was into street drugs. I do not have any details regarding this. 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 He now lives in apartment and his sister keeps an eye on him. September 23 was found by his family to be very confused. He could not dress himself and defecated on the floor. He arrived at the emergency room August 27 at 1314, with a temperature of 37, pulse 103, respiratory rate 18, blood pressure 149/70, and O2 saturation 94 percent. He was described as alert but had delayed verbal responses and delayed reactions. He did not know the year. He had no focal deficits on exam. CT scan of the head revealed a 3.5 x 2.1 left parietal mass with central cavitation and a large amount of edema surrounding. There was some mild midline shift. CT scan of the chest showed a lingular mass with lytic lesion and 9th rib and a right hepatic lobe lesion. On August 28, at 0038, he had an episode of unresponsiveness and shaking. This was followed by being flaccid and confused for several minutes. He was given 1 gram of Keppra. He has had no further seizures since and currently is sitting up in bed with no complaint of pain or headache. He is not dizzy and denies weakness, numbness, or confusion. Allergies Allergy/AdvReac Type Severity Reaction Status Date / Time bee venom protein (honey bee) Allergy Unknown swelling Verified 08/27/19 14:17 Home Medications Home Medications Medication Instructions Recorded Confirmed Type No Known Home Medications 09/29/18 08/27/19 History Patient History Medical History Distal radius fracture, left (Acute) Hypertension (Chronic) Family History Other Family history non-contributory Social History (Updated 08/28/19 @ 08:51 by Jose L Farley III, MD) Preferred Language: Russian Communication Ability: Effective Computer Systems Support Specialist Required: No Beliefs That Will Affect Care: None Current Living Situation: Alone current occupational status: unemployed Other Information That Helps Us Care for You: 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 Not drinking much currently. Hx Substance Use: No Review of Systems Review of Systems: Review of systems is difficult to obtain because of his mental status. He tends to say no to anything I asked him if he has Constitutional: no fever, no fatigue and no weakness Eyes: no diplopia and no loss of peripheral vision Ear, Nose, Mouth, Throat: no ear pain, no tinnitus and no hearing loss Respiratory: no cough and no dyspnea Cardiovascular: no chest pain and no dyspnea on exertion Gastrointestinal: no abdominal pain and no nausea Genitourinary: no dysuria and no urinary incontinence Musculoskeletal: no back pain and no neck pain Integumentary: no rash and no lesions Neurologic: no generalized weakness, no numbness, no headache(s) and no abnormal speech Psychiatric: no depression and no anxiety Endocrine: no fatigue and no flushing Hematologic / Lymphatic: no easy bleeding and no easy bruising Allergy / Immunological: no urticaria and no rash Physical Exam Physical Exam: The patient is right-handed. The patient is awake, alert, and attentive. Speech is hesitant in answering and he is not dysarthric. I believe he has some very mild receptive aphasia. he can name some objects and can repeat a phrase but does not initiate speech (only answers my questions). Mentation and thought processes are poor in that he is oriented to person and partially place but not day, date, month, or year. He is poor with simple calculations. He gets mixed up with left versus right. Mood is reasonable and affect is flat. He can get distracted somewhat easily. The discs are sharp with positive venous pulsations bilaterally. There are no exudates, hemorrhages, or blood vessel changes seen. Pupils are 3 mm bilaterally and reactive to light. Extraocular eye muscles are intact without nystagmus. He may have some decrease vision to the right with confrontation. There are no deficits to sensation in the face in all 3 distributions of the fifth cranial nerve bilaterally. Corneal reflexes are positive bilaterally. Facial strength and symmetry was normal bilaterally. Hearing seems normal to whisper and finger rub bilaterally. Palate moves well without asymmetry. There is normal sternocleidomastoid and trapezius (shoulder shrug) strength bilaterally. Tongue is midline with good strength bilaterally. Neck has a full range of motion without discomfort. There are no cervical bruits bilaterally. There are no cranial or ocular bruits. Heart is without murmur. There is a regular rhythm and rate. Cervical, thoracic, and lumbar spine are nontender to palpation. Gait is somewhat wide-based and very poor balance. He needs to hold on a cannot stand with his feet together eyes open. With outstretched arms there is no drift. There are no resting, postural, or action tremors. There is no ataxia with finger to nose testing. There is reasonable facility in the hands. No other abnormal involuntary movements are noted. Motor strength is 5/5 diffusely in the left upper extremity including deltoids, biceps, triceps, brachioradialis, wrist flexors and extensors, brewmaster, and intrinsic hand muscles. These muscles in the right upper extremity are 4/5 diffusely. Motor strength is 5/5 diffusely in the left leg including hip flexors, quadriceps, hamstrings, gastrocnemius, tibialis anterior, tibialis posterior, and Peroneii muscles. These muscles are 4+/5 diffusely in the right lower extremity. Toe extensors are normal and there is good bulk in the extensor digitorum brevis muscles bilaterally. The limbs have good tone without rigidity or spasticity. There is no atrophy noted in the muscles. Muscle bulk is normal, there is no tenderness to palpation, no myotonia to percussion, and no fasciculations seen. Sensory examination is intact to touch and pin throughout all 4 limbs diffusely. Reflexes are 2/4 in the left biceps, triceps, brachioradialis, quadriceps, and Achilles tendons. His reflexes are slightly brisker in the right side particularly in the quadriceps which is likely 3/4. There is no clonus bilaterally. Toes are downgoing with plantar stimulation on the left and equivocal to upgoing on the right. Peripheral pulses are present and of normal quality distally in all 4 limbs. There is no peripheral edema noted in the limbs. Results & Data Vital Signs (Past 12 Hours) Vital Signs Temp Pulse Pulse Resp BP BP Pulse Ox 08/28/19 06:49 36.3 C L 70 18 146/76 H 98 08/28/19 04:02 36.3 C L 68 18 119/67 97 08/27/19 23:17 36.6 C 96 H 18 122/79 97 08/27/19 22:08 36.5 C 83 18 134/61 99 PG Care Time/CCT Total # of Minutes Spent Total Time Spent with Patient: Total time spent is greater than 50% in coordination of care (as documented) at patient's floor/unit and/or counseling patient:
--- NOTE | 2019-08-28 10:26 | Discharge Summary ---
Date of Service date of admission - August 27, 2019 date of discharge - August 28, 2019 Admission HPI Per Admitting Provider Supa Pate is a 59 y/o M with PMH of hypertension, alcoholism, uncertain drug use, and uncertain extent of head trauma - presented to the emergency room following being increasingly confused and agitated with family this morning, family notes that when they arrived this morning he had defecated on the floor; per sister this has been progressing over the last year since he re-entered her families life. Had previously been living in a homeless intermediate, or living on the streets for the better part of the last decade; when he was not living on the streets, per family, he had been living with his brother and likely using recreational drugs at that time, as his brother was known to family to "be mixed up in that stuff" and patient had to be checked into a detox facility shortly thereafter. They are also aware that he previously had a significant fall and was sent to [facility] (around 1999) for some brain bleed as a result of this trauma; he has had numerous falls since then but nothing that additionally required treatment Since March family has progressively noticed a decline in the function of the patient and this has continued to exponentially worsen over the last month with the patient becoming more increasingly confused, erratic (has been increasing his wandering around the community and has been found by family away from home), and they have noticed that he has been unable to sign his name. Family also noted that he has previously complained to them that his vision was worsening; patient is wearing glasses at this time, but they are unsure where he got them from or if they are prescription strength because they did not take him to get them. Principal Diagnosis presumed metastatic cancer, possibly lung primary, with likely metastatic disease to the brain Discharge Exam Constitutional + altered mental status and + frail appearing; no acute distress ENMT external ear and nose normal, oropharynx normal Mouth: + poor dentition Respiratory normal respiratory effort, lungs clear to auscultation Cardiovascular Rate/Rhythm: regular rate and regular rhythm Heart Sounds: normal S1 and normal S2; no murmur Vessels: posterior tibial pulses present and dorsalis pedis pulses present; no JVD Extremities: no edema Gastrointestinal (Abdomen) normal bowel sounds, soft, nontender, no hepatosplenomegaly Neurologic moves all extremities (strength 5/5 x 4 exts; no facial droop) and + confused; no focal motor deficits Psychiatric Orientation: alert and oriented to person; + not oriented to place and + not oriented to time Discharge Data Allergies Allergy/AdvReac Type Severity Reaction Status Date / Time bee venom protein (honey bee) Allergy Unknown swelling Verified 08/27/19 14:17 Consultations neurology - Scott Farley MD Ordered Studies 1. CT chest/abd/pelvis - IMPRESSION: 1. A 3.6 x 3.0 cm spiculated mass within the lingula. This is highly suspicious for a primary bronchogenic malignancy. 2. A few subcentimeter nodules within the left lower lobe as described above which are concerning for metastatic disease. 3. Possible 3 mm lytic lesion within the left lateral ninth rib. This will be better assessed on follow-up PET/CT. 4. An indeterminate 1.8 cm hypodense lesion within the right right hepatic lobe. This could represent a metastatic focus. 2. CT head - IMPRESSION: 1. A 3.6 x 3.0 cm spiculated mass within the lingula. This is highly suspicious for a primary bronchogenic malignancy. 2. A few subcentimeter nodules within the left lower lobe as described above which are concerning for metastatic disease. 3. Possible 3 mm lytic lesion within the left lateral ninth rib. This will be better assessed on follow-up PET/CT. 4. An indeterminate 1.8 cm hypodense lesion within the right right hepatic lobe. This could represent a metastatic focus. Hospital Course (1) Brain mass: Patient presented to [facility] with worsening mental status, confusion, some combativeness, and overall deterioration in his health over the last several months. At time of ER presentation he underwent CT head which demonstrated a large left- sided parietal lobe mass with surrounding edema. He was given IV steroids and admitted for further work-up. Later on hospital day #[address] of the chest / abdomen / pelvis which demonstrated a probable lung cancer primary in the lingula with probable metastatic disease to the ribs, possibly the liver, and other portions of the lungs. Thus, the brain mass was suspected to be metastatic in origin. IV steroids were continued for the edema surrounding the brain mass. Late in the evening on 08/27/19 the patient had a witnessed seizure event. By the time of the supervisor brake repair arrival to the bedside the seizure had stopped. The duration of the seizure was not known but possibly just minutes. He was loaded with IV keppra shortly after, then begun on oral keppra the AM of 08/28/19 (500mg BID). He had no further seizures while hospitalized. He was seen by Dr Scott Farley, [facility] neurology, who agreed with ongoing use of keppra for seizure prevention as well as the IV steroids. He advised transfer to tertiary care due to the brain mass and lack of neurosurgical services at [facility]. [facility] was contacted, and Dr Sherine Alvarado graciously accepted Mr Pate in transfer for ongoing care. Additional problems addressed - 1. 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 Placed on salt tabs and fluid restriction. Discharge Na level - 132. 2. hypokalemia - given replacement for such orally. 3. h/o alcoholism - placed on high-dose thiamine, folic acid, and MVI. 4. altered mental status - likely multifactorial including presence of brain mass. Cannot rule out pre-existing cognitive impairment or even dementia process from prior alcohol and drug abuse. He has considerable atrophy on CT head. Prior to transfer the patient's sister was phoned and she was made aware of all CT findings, the seizure, plan of care, and impending transfer to [facility]. (2) Lung mass: (3) Witnessed seizure: (4) Metastatic cancer: Presumed. Possible primary site - lung. see above. (5) Altered mental status: (6) H/O alcohol abuse: (7) Tobacco dependence: (8) Hyponatremia: (9) Hypokalemia: (10) Severe protein-calorie malnutrition: Unknown amount of weight loss but BMI is borderline low at 19.7 and patient appears to have significant, generalized muscle wasting. Likely due to presumed metastatic cancer process. Total Time Total Time Spent Total Time Spent (In Minutes): 45 Total Time Includes: Examination of the Patient, Discharge Planning and Medication Reconciliation Discharge Plan Discharge Items Patient Disposition: Transfer Acute Care Hospital Reason For Visit: BRAIN MASS Discharge Diagnosis: 1. suspected stage 4 cancer, uncertain primary but likely lung 2. brain mass - likely metastatic disease 3. seizure 2nd to #2 4. h/o alcoholism 5. confusion - acute/chronic 6. suspected SIADH due to #1 Activity: Resume your previous activity Non-emergency contact: Primary Care Provider Call non-emergency contact if: you have any medication questions Follow-up/Referrals: PCP,NO [Primary Care Provider] - Diet: Regular Fluids: 1200ml (5 cups) Addtl Attending Provider Instructions: Discharge care plan to be determined following hospital stay at [facility]. Pending Studies at Discharge: Yes Studies:: blood cultures Stand-Alone Forms: My [facility] [employer] Patient informed of condition?: Yes DNR: No Discharge Level of Care: Other Communicable Disease: No Discharge Prognosis: Deteriorating Lines: Peripheral IV Urinary Catheter: No Medications and DC Order Prescriptions: New levetiracetam [Keppra] 500 mg Tablet 500 mg PO BID Qty: 60 RF: 0 sodium chloride 1 gram Tablet 1 g PO TID Qty: 6 RF: 0 potassium chloride [Klor-Con M20] 20 mEq Tablet,Er Particles/Crystals 20 meq PO TID Qty: 6 RF: 0 folic acid 1 mg tablet 1 mg PO DAILY Qty: 30 RF: 0 thiamine HCl (vitamin B1) 100 mg tablet 200 mg PO BID Qty: 120 RF: 0 multivitamin capsule 1 cap PO DAILY Qty: 30 RF: 0 dexamethasone sodium phosphate 4 mg/mL solution 4 mg IV Q12H Qty: 30 RF: 0 No Action No Known Home Medications RF: 0 Discharge Orders: Discharge Order (Routine); Ordered 08/28/19 Ordered By: Patricio Hsu Admission Data Admit Date/Time: 08/27/19 18:49 Attending Provider: Patricio Hsu Admit Provider: Francisco David Primary Care Provider: PCP,NO Other Providers: Pebbles Rowell ; Alfred Shaikh ; Jose L Farley III ; Whit Munoz ; Luna Goode ; Chi Martínez
[2019-08-28] MEDS ORDERED: CEROVITE ADV FORMULA TAB PO SCH (10:30)
[2019-08-28] MEDS ORDERED: FOLIC ACID 1 MG TAB PO SCH (10:30)
== END 2019-08-28 13:16 | disposition short-term general hospital (02) | DRG 54 ==
LOC: ED 13:10 → 2W 18:49 → SUATTDRO 18:49 → 2W 19:57